=== PATIENT | male | born 1975 | race Caucasian/White ===

== ENCOUNTER 2022-06-13 10:28 | Outpatient (CLI) | payer BC, SELFPAY ==
[2022-06-13 08:00] LABS: Hemoglobin A1C* 5.6 % (0-5.6)
[2022-06-13 11:12] LABS: Albumin* 4.5 g/dL (3.3-5.0)
[2022-06-13 11:13] LABS: Chloride* 102 mmol/L (96-114); Potassium* 4.5 mmol/L (3.6-5.1)
[2022-06-13 11:15] LABS: Aspartate Amino Transferase* 31 U/L (12-35); Bilirubin Total* 0.7 mg/dL (0.1-1.5); Blood Urea Nitrogen* 18 mg/dL (5-24); Carbon Dioxide* 27 mmol/L (20-32); Cholesterol* 186 mg/dL (90-199); Creatinine* 1.1 mg/dL (0.5-1.5); Estimated Glomerular Filt Rate 83 ml/min; Glucose* 114 mg/dL (60-115); Total Protein* 7.1 g/dL (6.0-8.3)
[2022-06-13 11:16] LABS: Alanine Aminotransferase* 41 U/L (4-50); Alkaline Phosphatase* 50 U/L (40-150); Calcium* 8.8 mg/dL (8.4-10.6); HDL Cholesterol* 35 mg/dL (>=40); LDL Cholesterol Calculated 118 mg/dL (<100); Triglycerides* 166 mg/dL (40-149)
[2022-06-13 12:44] LABS: Sodium* 138 mmol/L (135-149)
== END 2022-06-13 10:29 | disposition home or self-care (01) ==
PROVIDERS: PCP Family Medicine; Visit Provider Family Medicine
DX: Z00.00 Encounter for general adult medical examination without abnormal findings (principal); R73.9 Hyperglycemia, unspecified; E78.5 Hyperlipidemia, unspecified; R74.8 Abnormal levels of other serum enzymes; E66.9 Obesity, unspecified; R03.0 Elevated blood-pressure reading, without diagnosis of hypertension; R73.01 Impaired fasting glucose
CPT/HCPCS: 80053; 80061; 83036

== ENCOUNTER 2022-08-03 06:21 | Outpatient (CLI) | payer BC, SELFPAY ==
--- NOTE | 2022-08-03 07:32 | W.ANESCHARGE ---
Anesthesia Charges Start Date/Time Anesthesia Start Date: 08/03/22 Anesthesia Start Time: 06:56 Stop Date/Time Anesthesia Stop Date: 08/03/22 Anesthesia Stop Time: 07:25 Summary Emergency: No
== END 2022-08-03 06:22 | disposition home or self-care (01) ==
PROVIDERS: PCP Family Medicine; Visit Provider Internal Medicine
DX: Z12.11 Encounter for screening for malignant neoplasm of colon (principal); K63.5 Polyp of colon
CPT/HCPCS: 00811; 45380; 88305; J2704

== ENCOUNTER 2023-07-11 08:58 | Outpatient (CLI) | payer BC, SELFPAY | END 2023-07-11 08:59 | disposition home or self-care (01) | LOC: NFLDREF 07-15 07:31 | PROVIDERS: PCP Family Medicine; Referring Provider Family Medicine; Visit Provider Family Medicine | DX: E78.5 Hyperlipidemia, unspecified (principal); R73.01 Impaired fasting glucose; E66.9 Obesity, unspecified; R03.0 Elevated blood-pressure reading, without diagnosis of hypertension | CPT/HCPCS: 80053; 80061 ==

== ENCOUNTER 2023-09-25 19:32 | Outpatient (CLI) | payer BC, SELFPAY ==
--- NOTE | 2023-10-08 09:45 | W.PM.SLEEP ---
Sleep Study Details Details Interpreting Provider: Gallito Date of Sleep Study: 09/25/23 Sleep Study Details: STUDY TYPE:? Home unattended ? BMI:? 32.2 ORDERING PROVIDER:? Nathan INDICATION:? Concerns about sleep apnea ? SLEEP SUMMARY:? 502 minutes monitored RESPIRATORY SUMMARY:? AHI 7.1, supine 9.8, left lateral Cristobal 0.9, right lateral 5.2 Low oxygen 86 1.8% of study oxygen less than 90% Snoring none PERIODIC LIMB MOVEMENTS OF SLEEP:? Not recorded during home study CARDIAC:? Range 62-97, mean 73.2 IMPRESSION:? Mild obstructive sleep apnea worse in the supine and left lateral position. RECOMMENDATION: Treatment options include AutoSet CPAP, dental appliance and/or airway expansion surgery.
== END 2023-09-25 19:33 | disposition home or self-care (01) ==
LOC: SLEEP 19:33
PROVIDERS: PCP Family Medicine; Visit Provider Family Medicine
DX: G47.33 Obstructive sleep apnea (adult) (pediatric) (principal)
CPT/HCPCS: 95806

== ENCOUNTER 2024-03-30 06:18 | Day surgery (SDC) | payer BC, SELFPAY ==
[2024-03-30] VITALS (13 sets, daily range): BP systolic 131–142; BP diastolic 82–103; PULSE 64–75; RESP 12–20; TEMP 36.4–36.8; O2SAT 90–98; BMI 32.3
[2024-03-30] MEDS: LACTATED RINGERS 1000 ML 1,000 ML 100 ML IV (07:00)
[2024-03-30] MEDS: SODIUM CHLORIDE 0.9 % (FLUSH) 10 ML SYRINGE IVF (07:00)
--- NOTE | 2024-03-30 07:24 | SUR.PREOP ---
abdomeinal girth 46 inches
[2024-03-30] MEDS: BUPIVACAINE 0.25% 30 ML INJECTION (08:54)
--- NOTE | 2024-03-30 09:03 | PM.GSPRC ---
Operative Note Date of procedure: 03/30/24 Pre-op diagnosis: Umbilical hernia Post-op diagnosis: Same Type of Procedure: Open repair 2 cm umbilical hernia with mesh Indications: The patient is a 48-year-old male who has a history of an umbilical hernia which became acutely more painful several months ago with activity. Because of his increase in discomfort, he presented to clinic. I recommended repair and After discussion, he elected to proceed. Procedure Description: After discussing the risks and benefits of the procedure, the patient signed informed consent.? The operative site was marked and the patient was brought to the operating room and placed on the operating table in supine position.? Care was taken to pad the patient's pressure points.?? The patient was then intubated by anesthesia.?? The operative site was then prepped and draped in the usual sterile fashion.? A time-out was then performed. Local anesthetic was injected into the fascia, skin and subcutaneous tissues. A curvilinear incision was made just at the inferior border of the umbilicus. Dissection was carried down into the subcutaneous tissue using cautery. The hernia was encountered. Dissection was taken down to the fascia, and the umbilical stalk was carefully dissected off of the herniate sac and herniated preperitoneal fat. Once the hernia was dissected out circumferentially, it was reduced. The fascial edges were then cleared circumferentially. The hernia was 2 cm in size and so the decision was made to use a piece of mesh. A preperitoneal pocket was created using a combination of blunt dissection and cautery. Hemostasis appeared adequate. Once the posterior fascia was clear, a piece of [address] hernia mesh was placed in the preperitoneal space with care to ensure that it laid flat. This was secured into place using 2 0 PDS interrupted sutures. The tails were then trimmed and the fascial opening was closed with a running 0 Vicryl. The umbilicus was reapproximated to the fascia. The skin was then closed with running absorbable suture. A sterile dressing was then applied. ? The patient was then woken and transported to the recovery area in stable condition. ? The patient tolerated the procedure well. Findings: 2 cm fat containing umbilical hernia. Implants: Bard Ventralex ST mesh Anesthesia: GETA Surgeon: Katie Henderson MD Estimated blood loss (mL): 5 Condition: stable Disposition: PACU
--- NOTE | 2024-03-30 09:03 | W.ANESCHARGE ---
Anesthesia Charges Start Date/Time Anesthesia Start Date: 03/30/24 Anesthesia Start Time: 07:12 Stop Date/Time Anesthesia Stop Date: 03/30/24 Anesthesia Stop Time: 09:16
--- NOTE | 2024-03-30 09:20 | W.ANESCHARGE ---
Anesthesia Charges Start Date/Time Anesthesia Start Date: 03/30/24 Anesthesia Start Time: 07:12 Stop Date/Time Anesthesia Stop Date: 03/30/24 Anesthesia Stop Time: 09:16
[2024-03-30] MEDS: KETOROLAC 15 MG/ML inj IVP (10:32)
[2024-03-30] MEDS: HYDROCODONE-ACETAMIN 5-325 MG 1 TAB PO (10:32)
== END 2024-03-30 11:11 | disposition home or self-care (01) ==
PROVIDERS: PCP Family Medicine; Visit Provider Surgery
PROC: (CPT 49591; principal; 2024-03-30 07:45)
DX: K42.9 Umbilical hernia without obstruction or gangrene (principal)
CPT/HCPCS: 49591; 00750; 00830; A9270; C1781; J0330; J0665; J1100; J1885; J2405; J2704; J3010; J3370; J7050; J7120

== ENCOUNTER 2024-08-21 07:34 | Outpatient (CLI) | payer BC, SELFPAY | END 2024-08-21 07:35 | disposition home or self-care (01) | LOC: NFLDREF 08-23 14:18 | PROVIDERS: PCP Family Medicine; Referring Provider Family Medicine; Visit Provider Family Medicine | DX: R03.0 Elevated blood-pressure reading, without diagnosis of hypertension (principal); E78.5 Hyperlipidemia, unspecified; R73.03 Prediabetes; Z12.5 Encounter for screening for malignant neoplasm of prostate | CPT/HCPCS: 80053; 80061; G0103 ==

== ENCOUNTER 2025-06-30 09:27 | Outpatient (CLI) | payer BC, SELFPAY ==
--- NOTE | 2025-06-30 09:45 | CRLHL7_ITS ---
For Patients: As a result of the Cures Act, medical imaging exams and procedure reports are released immediately into your electronic medical record. You may view this report before your referring provider. If you have questions, please contact your health care provider. BILATERAL DIAGNOSTIC MAMMOGRAM WITH COMPUTER-AIDED DETECTION AND TOMOSYNTHESIS CLINICAL HISTORY: LEFT breast pain. COMPARISON: None. TECHNIQUE: Digital BILATERAL mammogram in four projections with computer-aided detection. Tomosynthesis was used in this interpretation. BREAST COMPOSITION: The breasts are almost entirely fatty. FINDINGS: 3D CC/MLO BILATERAL mammogram images submitted. No suspicious mass or architectural distortion. No adenopathy or suspicious calcifications. No gynecomastia. IMPRESSION: Normal BILATERAL mammograms. No suspicious findings. No evidence of malignancy. No gynecomastia. RECOMMENDATIONS: Clinical follow-up. A lay language report of this examination will be provided to the patient. BI-RADS Category 1: Negative Dictated by Shayan Azul MD @ 06/30/2025 12:51:29 PM /sp SP/Dictated by: Shayan Azul MD @ 06/30/2025 12:51:00 PM (Electronically Signed)
== END 2025-06-30 09:28 | disposition home or self-care (01) ==
LOC: MAMMO 09:27
PROVIDERS: PCP Physician Assistant Medical; Visit Provider Physician Assistant Medical
DX: N64.4 Mastodynia (principal)
CPT/HCPCS: 77066; G0279

== ENCOUNTER 2025-07-01 13:44 | Outpatient (CLI) | payer BC, SELFPAY ==
[2025-07-01] MEDS: PERFLUTREN LIPID MICROSPHERES 2 ML VIAL IVP (14:40)
--- NOTE | 2025-07-01 14:45 | W.PM.STED ---
Stress Test Note Date Date Seen: 07/01/25 Date of test: 07/01/25 Providers Primary care provider: Baylee Valencia Stress test physician: Danielle Greene Stress Test Note Stress test ordered: Stress Echo Indication for test: Chest pain Stress test medicine: Definity Results discussion: Resting EKG: Sinus rhythm, 75 beats per minute. Resting blood pressure: 125/90 Stress test: Patient was consented on ordered stress test of exercise treadmill stress echo and agrees to proceed. Standard Yogesh protocol was followed. Patient was able to exercise to 9 minute 46 seconds stopping due to reaching exercise capacity and target heart rate. This is equivalent to 11.3 Mets exercise. Patient had a maximum heart rate of 165 beats per minute which was 114% of a calculated target heart rate of 144. Rate pressure product was 28,380. There were no diagnostic EKG changes of ischemia, no arrhythmia. Patient had no symptoms. Await echo images to couple this for a full formal diagnostic. Impression: Subjectively negative, objectively negative EKG portion of this stress test, await echo images to couple this for a full formal diagnostic. Follow up suggested: Patient was discharged in stable condition. He will hear from his ordering provider once final results are back.
[2025-07-01 15:01] VITALS: BP 144/80; PULSE 103; RESP 16
== END 2025-07-01 14:50 | disposition home or self-care (01) ==
LOC: STRESS 13:45
PROVIDERS: PCP Physician Assistant Medical; Visit Provider Physician Assistant Medical
DX: R07.9 Chest pain, unspecified (principal)
CPT/HCPCS: 93016; 93325; 93351; Q9957

== ENCOUNTER 2025-08-27 08:11 | Outpatient (CLI) | payer BC, SELFPAY | END 2025-08-27 08:12 | disposition home or self-care (01) | LOC: NFLDREF 09-01 09:18 | PROVIDERS: PCP Physician Assistant Medical; Referring Provider Physician Assistant Medical; Visit Provider Physician Assistant Medical | DX: I10 Essential (primary) hypertension (principal); E78.5 Hyperlipidemia, unspecified; Z00.00 Encounter for general adult medical examination without abnormal findings | CPT/HCPCS: 80053; 80061; G0103 ==